=== PATIENT | female | born 1935 | race Caucasian/White ===

== ENCOUNTER 2016-11-02 22:57 | Observation (INO) | payer MEDICARE, OTHER ==
[~2016-11-02] VITALS: Ht 157.5 cm; Wt 72.0 kg
[~2016-11-02 22:57] MED LIST: ASPI81TA3 PO; DRON400T2 PO; HYDR-3671 PO; LOSA100T7 PO; METF850T PO; RIVA20TA PO; SOLI5TAB5 PO
[2016-11-02] MEDS ORDERED: ONDANSETRON 4 MG INJ IV STA (23:07)
[2016-11-02] MEDS ORDERED: morphine 4 MG/ML VIAL IV STA (23:07)
[2016-11-02 23:08] VITALS: Ht 157.5 cm; Wt 72.0 kg
[2016-11-02 23:50] VITALS: TEMP 98
[2016-11-03] VITALS (12 sets, daily range): BP systolic 129–187; BP diastolic 61–81; PULSE 58–84; RESP 14–20
[2016-11-03 00:16] LABS: ADD SCAN DIFF NO
[2016-11-03 00:20] LABS: BASOPHILS % 0.1 % (0.0-2.0); HEMATOCRIT 32.7 % (37.0-47.0); HEMOGLOBIN 10.8 g/dl (12.0-16.0); LYMPHOCYTES # 1.8 10^3/ul (0.8-2.9); LYMPHOCYTES % 22.6 % (15.0-51.0); MEAN CORPUSCULAR HEMOGLOBIN 27.1 pg (29.0-33.0); MEAN PLATELET VOLUME 11.4 fl (7.4-10.4); MONOCYTE # 0.6 10^3/ul (0.3-0.9); MONOCYTES % 6.8 % (0.0-11.0); NEUTROPHIL # 5.7 10^3/ul (1.6-7.5); NEUTROPHILS % 70.1 % (39.0-77.0); PLATELET COUNT 177 10^3/UL (140-415); RED BLOOD COUNT 3.99 10^6/ul (4.20-5.40); RED CELL DISTRIBUTION WIDTH 13.6 % (11.5-14.5); WHITE BLOOD COUNT 8.1 10^3/ul (4.8-10.8)
[2016-11-03 00:29] LABS: CHLORIDE 106 mmol/L (97-110); POTASSIUM 4.1 mmol/L (3.5-5.1); SODIUM 140 mmol/L (135-144)
[2016-11-03 00:31] LABS: BILIRUBIN,INDIRECT 0.1 mg/dl (0-1.1); BILIRUBIN,TOTAL 0.1 mg/dl (0.2-1.3); CREATININE 0.86 mg/dl (0.44-1.00)
[2016-11-03 00:32] LABS: ALANINE AMINOTRANSFERASE 30 IU/L (13-69); ALBUMIN/GLOBULIN RATIO 1.11; ALKALINE PHOSPHATASE 82 IU/L (42-121); ANION GAP 12 (8-16); ASPARTATE AMINO TRANSFERASE 23 IU/L (15-46); BLOOD UREA NITROGEN 19 mg/dl (7-20); CARBON DIOXIDE 26 mmol/L (21-31); GLUCOSE 132 mg/dl (70-220); TOTAL PROTEIN 7.6 g/dl (6.1-8.1)
[2016-11-03 00:33] LABS: CALCIUM 9.1 mg/dl (8.4-10.2)
[2016-11-03 00:38] LABS: INR 1.04; PROTIME 13.6 Sec (12.2-14.2); PT RATIO 1.1
[2016-11-03 00:41] LABS: B-TYPE NATRIURETIC PEPTIDE 748 PG/ML (0-450); PARTIAL THROMBOPLASTIN TIME 28.9 Sec (25.0-35.0)
--- NOTE | 2016-11-03 00:44 | RADRPT ---
PROCEDURE: XR Chest. CLINICAL INDICATION: Chest pain. TECHNIQUE: Single frontal view of the chest was obtained COMPARISON: Chest dated 09/28/2014. FINDINGS: Cardiomegaly and tortuous thoracic aorta. Mild pulmonary vascular congestion and patchy air space d isease. There is no pleural effusion or pneumothorax. IMPRESSION: Mild failure. RPTAT: [facility] Physician Saundra Date Time Electronically viewed and signed by Helen Perla Physician on 11/03/2016 00:44 RS/
[2016-11-03 00:45] LABS: TROPONIN-I < 0.012 ng/ml (0.00-0.12)
--- NOTE | 2016-11-03 00:57 | ERD ---
ER Documentation Chief Complaint Date/Time DATE: 11/03/16 TIME: 00:55 Chief Complaint bib ra c/o CP since yesterday, nonradiating, nonprovoked, 09/12 w/ ntg x2 HPI This is an 81-year-old female who brought in by rescue complaining of chest pain since yesterday which is nonradiating and non-provoked. Patient was given 2 rounds of nitroglycerin in the field along with aspirin therapy. Pain scale went down from 8 out of 10-2 out of 10 upon arrival to the ER. Patient complaining of mild headache. Nonfocal neurologically. No shortness of breath. No diaphoresis. Patient does have significant cardiac history per daughter at the bedside. ROS All systems reviewed and are negative except as per history of present illness. Medications Home Meds Active Scripts Aspirin (Aspirin) 81 Mg Chew, 81 MG PO DAILY for 30 Days Prov:HOMAR ESCOBEDO MD 09/30/14 Hydralazine Hcl* (Hydralazine Hcl*) 25 Mg Tab, 25 MG PO TID for 30 Days, TAB Prov:HOMAR ESCOBEDO MD 09/30/14 Reported Medications Solifenacin* (Vesicare*) 5 Mg Tablet, 5 MG PO DAILY, TAB 09/28/14 Rivaroxaban* (Xarelto*) 20 Mg Tablet, 20 MG PO DAILY, TAB 09/28/14 Dronedarone Hydrochloride* (Multaq*) 400 Mg Tablet, 400 MG PO BID, TAB 09/28/14 Losartan Potassium* (Losartan Potassium*) 100 Mg Tablet, 100 MG PO DAILY, TAB 09/28/14 Metformin Hcl* (Metformin Hcl*) 850 Mg Tablet, 850 MG PO BID, TAB 09/28/14 Allergies Allergies: Coded Allergies: No Known Allergy (Unverified , 09/28/14) PMhx/Soc History of Surgery: Yes (appendicitis, ) Anesthesia Reaction: No Hx Neurological Disorder: No Hx Respiratory Disorders: No Hx Cardiac Disorders: Yes (HTN) Hx Psychiatric Problems: No Hx Miscellaneous Medical Probl: Yes (back pain) Hx Alcohol Use: No Hx Substance Use: No Hx Tobacco Use: No Smoking Status: Never smoker Physical Exam Vitals Vital Signs Date Time Temp Pulse Resp B/P Pulse Ox O2 Delivery O2 Flow Rate FiO2 11/02/16 23:50 Nasal Cannula 2 11/02/16 23:50 98.0 60 20 179/67 98 Room Air 11/02/16 23:08 98.0 79 20 173/93 98 Physical Exam Const: [] Head: Atraumatic Eyes: Normal Conjunctiva ENT: Normal External Ears, Nose and Mouth. Neck: Full range of motion..~ No meningismus. Resp: Clear to auscultation bilaterally Cardio: Regular rate and rhythm, no murmurs Abd: Soft, non tender, non distended. Normal bowel sounds Skin: No petechiae or rashes Back: No midline or flank tenderness Ext: No cyanosis, or edema Neur: Awake and alert Psych: Normal Mood and Affect Result Diagram: 11/02/16232411/02/162324 Results 24 hrs Laboratory Tests Test 11/02/16 23:25 White Blood Count 8.110^3/ul Red Blood Count 3.9910^6/ul Hemoglobin 10.8g/dl Hematocrit 32.7% Mean Corpuscular Volume 82.0fl Mean Corpuscular Hemoglobin 27.1pg Mean Corpuscular Hemoglobin Concent 33.0g/dl Red Cell Distribution Width 13.6% Platelet Count 10917^3/UL Mean Platelet Volume 11.4fl Neutrophils % 70.1% Lymphocytes % 22.6% Monocytes % 6.8% Eosinophils % 0.0% Basophils % 0.1% Nucleated Red Blood Cells % 0.0/100WBC Neutrophils # 5.710^3/ul Lymphocytes # 1.810^3/ul Monocytes # 0.610^3/ul Eosinophils # 0.010^3/ul Basophils # 0.010^3/ul Nucleated Red Blood Cells # 0.010^3/ul Prothrombin Time 13.6Sec Prothrombin Time Ratio 1.1 INR International Normalized Ratio 1.04 Activated Partial Thromboplast Time 28.9Sec Sodium Level 140mmol/L Potassium Level 4.1mmol/L Chloride Level 106mmol/L Carbon Dioxide Level 26mmol/L Anion Gap 12 Blood Urea Nitrogen 19mg/dl Creatinine 0.86mg/dl Glucose Level 132mg/dl Calcium Level 9.1mg/dl Total Bilirubin 0.1mg/dl Direct Bilirubin 0.00mg/dl Indirect Bilirubin 0.1mg/dl Aspartate Amino Transf (AST/SGOT) 23IU/L Alanine Aminotransferase (ALT/SGPT) 30IU/L Alkaline Phosphatase 82IU/L Troponin I < 0.012ng/ml B-Type Natriuretic Peptide 748PG/ML Total Protein 7.6g/dl Albumin 4.0g/dl Globulin 3.60g/dl Albumin/Globulin Ratio 1.11 Current Medications Medications (Trade) Dose Ordered Sig/Jean-Claude Route PRN Reason Start Time Stop Time Status Last Admin Dose Admin Morphine Sulfate (morphine) 4 mg ONCE STAT IV 11/02/16 23:07 11/02/16 23:08 DC 11/02/16 23:33 Ondansetron HCl (Zofran Inj) 4 mg ONCE STAT IV 11/02/16 23:07 11/02/16 23:08 DC 11/02/16 23:33 Acetaminophen (Tylenol Tab) 650 mg ONCE ONCE PO 11/03/16 01:00 11/03/16 01:01 Procedures/MDM EKG: Rate/Rhythm: Normal Sinus Rhythm QRS, ST, T-waves: No changes consistent w/ acute ischemia Impression: No evidence of ischemia or arrhythmia Chest X-ray 1V Interpreted by me: Soft Tissue: No acute abnormalities Bones: No acute abnormalities Mediastinum/Cardiac Silhouette/Lungs: No acute abnormalities Patient's symptoms are concerning for cardiac cause will require inpatient workup and continuous monitoring. Further w/u for ischemia, arrhythmia, PE or dissection will be deferred to the inpatient team. Accepting Care Team: Current data and ongoing care discussed. Time: 12:55 am Primary Provider: Hospitalist Consulting: [XOXOXO] Outstanding Data: none Departure Diagnosis: Primary Impression: Chest pain Chest pain type: chest pain due to myocardial ischemia Ischemic chest pain type: unstable angina pectoris Qualified Code: I20.0 - Unstable angina pectoris Additional Impression: Acute chest pain Condition: Serious CLARKEDAREKALLYHOMARShayla Nov 03, 2016 00:56
[2016-11-03] MEDS ORDERED: ACETAMINOPHEN 325 MG TAB PO ONE (01:00)
[2016-11-03] MEDS ORDERED: NITROGLYCERIN (SL) 0.4 MG TAB SL PRN (03:00)
[2016-11-03] MEDS ORDERED: INFLUENZA VIRUS VACCINE 0.5 ML SYG IM* ONE (03:00)
[2016-11-03] MEDS ORDERED: ACETAMINOPHEN 325 MG TAB PO PRN (03:00)
[2016-11-03] MEDS: morphine 4 MG/ML VIAL IV PRN (03:28)
[2016-11-03] MEDS ORDERED: GLUCOSE GEL 15 GRAM TUBE BUCCAL PRN (04:00)
[2016-11-03] MEDS ORDERED: DEXTROSE 50% 50 ML SYRINGE IV PRN ×2 (04:00)
[2016-11-03] MEDS ORDERED: GLUCAGON 1 MG INJ IM PRN (04:00)
[2016-11-03] MEDS ORDERED: GLUCOSE GEL 15 GRAM TUBE PO PRN ×2 (04:00)
--- NOTE | 2016-11-03 05:28 | HP ---
DATE OF ADMISSION: 11/03/2016 TIME SEEN: 3 a.m. CHIEF COMPLAINT: Chest pain. HISTORY OF PRESENT ILLNESS: The patient is an 81-year-old female with a history of hypertension, di abetes, dyslipidemia, and atrial fibrillation who presented to the emergency department with a chief complaint of chest pain. The patient is Setswana speaking only and as such, information is gathere d from chart review, from the ER physician, and her through translator and interpreter. Her chest pain has been go ing on since yesterday. It is sharp, nonradiating, and reportedly was 8/10 in intensity. The pain to 3/10 pain after first nitroglycerin by EMS and further decreased to 2/10 after the second nitrogl ycerin, again given by EMS. When she presented to the ER, her blood pressure was 173/93 but initially it was 216/104. The patie nt was admitted here about a month ago for a headache and at that time, a CT of the head was negativ e for any acute findings. The patient's blood pressure was elevated at that time and based on chart review, it seems like she has had his uncontrolled hypertension. When the patient presented to the ER, she also started complaining of headache after she was given nitroglycerin by EMS. No other co mplaint other than that the initial chest pain and now headache. Laboratory value shows that her f irst troponin is negative. BNP is almost 750, hemoglobin almost 11, otherwise CBC and CMP are withi n normal limits. A chest x-ray shows mild pulmonary vascular congestion and patchy airspace disease . In the ER, she was given Tylenol, morphine, and Zofran. REVIEW OF SYSTEMS: Negative except as mentioned in HPI. PAST MEDICAL HISTORY: As per HPI. PAST SURGICAL HISTORY: Appendectomy and . SOCIAL HISTORY: No history of tobacco, alcohol or illicit drug use. ALLERGIES: NO KNOWN DRUG ALLERGIES. HOME MEDICATIONS: 1. Xarelto. 2. Multaq. 3. Hydralazine. 4. Losartan. 5. Aspirin. 6. Metformin. 7. VESIcare. PHYSICAL EXAMINATION: VITAL SIGNS: Blood pressure 170/61, heart rate 66, respiratory rate 14, temperature 98, oxygen satu ration 99% on room air. GENERAL: No acute distress. Was slightly sleepy, but arousable, and she actually looks comfortable . HEENT: No obvious head deformity. Pupils are reactive to light. CARDIOVASCULAR: Regular rate and rhythm with no extra sounds. LUNGS: Minimally decreased breath sounds at the bases without wheezes or rhonchi. ABDOMEN: Soft, nontender, nondistended. Positive bowel sounds. EXTREMITIES: No edema. LABORATORY: Pertinent positives as mentioned in the HPI. IMAGING: Chest x-ray shows mild pulmonary vascular congestion and patchy airspace disease. IMPRESSION 1. Chest pain, need to rule out acute coronary syndrome. 2. Hypertensive urgency (blood pressure was 216/104 per EMS). 3. History of diabetes. 4. History of atrial fibrillation, currently in sinus and rate controlled. 5. Headache, likely a combination of elevated blood pressure and nitroglycerin. 6. History of dyslipidemia. PLAN: Continue telemetry monitoring. We will rule out acute coronary syndrome and as such, will se nd additional troponins. The patient recently had a 2D echo about 6 weeks ago which only showed mil d left ventricular hypertrophy and mild enlargement of the left atrium, otherwise she had a preserve d ejection fraction of 60% without significant valvular stenosis or regurgitation. The patient foll ows up with her residency coordinator, Dr. Burns, for outpatient and was recently seen here by Dr. Yovanny herbert o will actually notify about her admission. Her initial EKG was no ST-T wave abnormalities. She wi ll be continued with her home medication including her hydralazine, losartan, Xarelto, and aspirin, but will hold her metformin. Will adjust her antihypertensive for better blood pressure control. H er heart rate has been as low as 60 and as such will not add a beta yue at this time. Her recen t fasting lipid panel was within acceptable range and A1c was 6.2 and a TSH was within normal limits . Will provide pain medication for her headache and will provide nitroglycerin and morphine as need ed for chest pain. Further workup and management per clinical course. Dictated By: HOMAR DURBIN/AMBER Conf#: [id number] DID#: [id number]
[2016-11-03] MEDS: hydrALAzine 20 MG INJ IV PRN (06:52)
[2016-11-03 06:58] LABS: ADD SCAN DIFF NO
[2016-11-03 07:04] LABS: HEMATOCRIT 33.2 % (37.0-47.0); HEMOGLOBIN 10.6 g/dl (12.0-16.0); LYMPHOCYTES # 2.1 10^3/ul (0.8-2.9); LYMPHOCYTES % 31.8 % (15.0-51.0); MEAN CORPUSCULAR HEMOGLOBIN 26.1 pg (29.0-33.0); MEAN CORPUSCULAR HGB CONC 31.9 g/dl (32.0-37.0); MEAN CORPUSCULAR VOLUME 81.8 fl (82.0-101.0); MEAN PLATELET VOLUME 10.8 fl (7.4-10.4); MONOCYTE # 0.6 10^3/ul (0.3-0.9); MONOCYTES % 8.9 % (0.0-11.0); NEUTROPHILS % 59.2 % (39.0-77.0); PLATELET COUNT 161 10^3/UL (140-415); RED BLOOD COUNT 4.06 10^6/ul (4.20-5.40); RED CELL DISTRIBUTION WIDTH 13.9 % (11.5-14.5); WHITE BLOOD COUNT 6.7 10^3/ul (4.8-10.8)
[2016-11-03 07:19] LABS: CHLORIDE 107 mmol/L (97-110); POTASSIUM 4.2 mmol/L (3.5-5.1); SODIUM 139 mmol/L (135-144)
[2016-11-03 07:21] LABS: CHOLESTEROL 171 mg/dl (100-200)
[2016-11-03 07:22] LABS: ANION GAP 10 (8-16); BLOOD UREA NITROGEN 18 mg/dl (7-20); CARBON DIOXIDE 26 mmol/L (21-31); CREATININE 0.83 mg/dl (0.44-1.00); GLUCOSE 122 mg/dl (70-220); PHOSPHORUS 4.2 mg/dl (2.5-4.9); TRIGLYCERIDES 113 mg/dl (0-149)
[2016-11-03 07:23] LABS: CALCIUM 8.7 mg/dl (8.4-10.2); CHOL/HDL RATIO 4.7 RATIO; HDL CHOLESTEROL 36 mg/dl (33-92); MAGNESIUM 1.7 mg/dl (1.7-2.5)
[2016-11-03 07:40] LABS: TROPONIN-I < 0.012 ng/ml (0.00-0.12)
[2016-11-03] MEDS: ASPIRIN 81 MG TAB PO SCH (08:10)
[2016-11-03] MEDS: SOLIFENACIN 5 MG TAB PO SCH (08:11)
[2016-11-03] MEDS: RIVAROXABAN 20 MG TABLET PO SCH (08:11)
[2016-11-03] MEDS: INSULIN ASPART [NOVOLOG] 3 ML PEN SC SCH ×4 (08:16→20:26)
[2016-11-03] MEDS: INSULIN GLARGINE [LANtus] 3 ML PEN SC SCH (08:17)
[2016-11-03] MEDS: ONDANSETRON 4 MG INJ IV PRN (08:24)
[2016-11-03] MEDS ORDERED: hydrALAzine 20 MG INJ IV ONE (08:30)
[2016-11-03] MEDS ORDERED: LOSARTAN 50 MG TAB PO SCH (09:00)
[2016-11-03] MEDS ORDERED: IBUPROFEN 400 MG TAB PO PRN (12:00)
[2016-11-03] MEDS: HYDROCODONE/APAP (5/325) TAB PO PRN ×2 (12:45→18:07)
--- NOTE | 2016-11-03 16:06 | PDOCDIS ---
Discharge Instructions CONDITION Patient Condition: Good HOME CARE INSTRUCTIONS: Special Diet: 1800 TERESA LOW FAT/ CHOLESTEROL ACTIVITY: Activity Restrictions: No Restrictions FOLLOW UP/APPOINTMENTS Appointments FOllow up with PCP as out-pt Follow up with Cardiology as out-pt BENJI GRAY MD Nov 03, 2016 16:06
[2016-11-03] MEDS ORDERED: HYDR-3671 PO (16:09)
[2016-11-03] MEDS ORDERED: HYDR-3498 PO (16:09)
[2016-11-03] MEDS ORDERED: SITA50TA2 PO (16:24)
[2016-11-03] MEDS ORDERED: LOSA50TA6 PO (18:07)
[2016-11-03] MEDS ORDERED: HYDR-3672 PO (18:07)
[2016-11-03] MEDS ORDERED: ATEN-51 PO (18:07)
--- NOTE | 2016-11-03 18:14 | CONS ---
Date/Time of Note Date/Time of Note DATE: 11/03/16 TIME: 18:07 Assessment/Plan Assessment/Plan Additional Assessment/Plan Hypertension urgency, improved Paroxysmal atrial fibrillation, currently sinus Preserved ejection fraction Diabetes Hypertension -Extensive discussion was had with the patient and daughter at bedside. Patient on very similar home medication antihypertensive regimen in-house with significant improvement in blood pressure. Furthermore, patient has not been receiving clonidine or atenolol in house, which are patient's home medications, and blood pressure continues to improve. I am concerned about an element of noncompliance with medications. Furthermore in discussion, patient does admit to poor diet and sodium restriction. Could also be an element of anxiety as well. I would adjust Cozaar to 50 mg p.o. twice daily, hydralazine to 50 mg p.o. twice daily, continue atenolol. Given her age, systolic blood pressure goal in the 150s is appropriate. Serial cardiac enzymes have remained negative , ECG without any significant ischemic abnormalities. Consultation Date/Type/Reason Admit Date/Time Nov 03, 2016 at 00:57 Type of Consultation: cv Reason for Consultation Hypertension management Hx of Present Illness This is an 81-year-old female with past medical history of hypertension, paroxysmal atrial fibrillation, anxiety who presents with uncontrolled hypertension. Patient has been having issues with blood pressure control worsening over the past few weeks. She has a long history of uncontrolled hypertension. She recently had her atenolol dose increase as well as addition of hydralazine. She also has been taking clonidine intermittently. Patient with complaints of intermittent headaches, chest pain at times and shortness of breath. Symptoms are not related to activity but more so related to elevated blood pressure. She denies any fevers or chills, dizziness or lightheadedness, abdominal pain, nausea. Since her admission, her blood pressure trend has improved as well as her headache. She currently denies any chest pain or shortness of breath. 12 point review of systems was performed with all pertinent positives and negatives mentioned above and all else is negative Past Medical History Hypertension Paroxysmal atrial fibrillation Dyslipidemia Diabetes Family History Significant Family History: no pertinent family hx Social History Smoking Status: Never smoker Other Social History Lives at home Exam/Review of Systems Vital Signs Vitals Vital Signs Date Time Temp Pulse Resp B/P Pulse Ox O2 Delivery O2 Flow Rate FiO2 11/03/16 16:17 62 11/03/16 16:08 98.0 16 156/70 94 11/03/16 02:17 Room Air 11/02/16 23:50 2 Intake and Output 11/02/16 11/02/16 11/03/16 15:00 23:00 07:00 Intake Total 0 ml Balance 0 ml Exam No apparent distress Constitutional: alert, obese, oriented Head: normocephalic Neck: supple Respiratory: clear to auscultation, normal air movement Cardiovascular: other (S1-S2 heard), regular rate and rhythm Gastrointestinal: bowel sounds, non-tender, other (No guarding), soft Extremities: edema (Trace), other (No cyanosis) Results Result Diagram: 11/03/16 0640 11/03/16 0640 Results 24 hrs Laboratory Tests Test 11/02/16 23:25 11/03/16 01:56 11/03/16 06:40 11/03/16 07:50 White Blood Count 8.1 6.7 Red Blood Count 3.99 L 4.06 L Hemoglobin 10.8 L 10.6 L Hematocrit 32.7 L 33.2 L Mean Corpuscular Volume 82.0 81.8 L Mean Corpuscular Hemoglobin 27.1 L 26.1 L Mean Corpuscular Hemoglobin Concent 33.0 31.9 L Red Cell Distribution Width 13.6 13.9 Platelet Count 177 161 Mean Platelet Volume 11.4 H 10.8 H Neutrophils % 70.1 59.2 Lymphocytes % 22.6 31.8 Monocytes % 6.8 8.9 Eosinophils % 0.0 0.0 Basophils % 0.1 0.0 Nucleated Red Blood Cells % 0.0 0.0 Neutrophils # 5.7 4.0 Lymphocytes # 1.8 2.1 Monocytes # 0.6 0.6 Eosinophils # 0.0 0.0 Basophils # 0.0 0.0 Nucleated Red Blood Cells # 0.0 0.0 Prothrombin Time 13.6 Prothrombin Time Ratio 1.1 INR International Normalized Ratio 1.04 Activated Partial Thromboplast Time 28.9 Sodium Level 140 139 Potassium Level 4.1 4.2 Chloride Level 106 107 Carbon Dioxide Level 26 26 Anion Gap 12 10 Blood Urea Nitrogen 19 18 Creatinine 0.86 0.83 Glucose Level 132 122 Calcium Level 9.1 8.7 Total Bilirubin 0.1 L Direct Bilirubin 0.00 Indirect Bilirubin 0.1 Aspartate Amino Transf (AST/SGOT) 23 Alanine Aminotransferase (ALT/SGPT) 30 Alkaline Phosphatase 82 Troponin I < 0.012 < 0.012 B-Type Natriuretic Peptide 748 H Total Protein 7.6 Albumin 4.0 Globulin 3.60 H Albumin/Globulin Ratio 1.11 Bedside Glucose 115 142 Hemoglobin A1c 6.2 H Phosphorus Level 4.2 Magnesium Level 1.7 Triglycerides Level 113 Cholesterol Level 171 LDL Cholesterol, Calculated 112 HDL Cholesterol 36 Cholesterol/HDL Ratio 4.7 Thyroid Stimulating Hormone (TSH) 5.330 H Test 11/03/16 11:40 11/03/16 12:10 11/03/16 17:04 Troponin I < 0.012 Bedside Glucose 204 170 Medications Medications Current Medications Aspirin (Aspirin) 81 mg DAILY PO Last administered on 11/03/16 08:10; Admin Dose 81 MG; Start 11/03/16 at 09:00 Hydralazine HCl (Apresoline) 25 mg TID PO Last administered on 11/03/16 12:22; Admin Dose 25 MG; Start 11/03/16 at 09:00 Losartan Potassium (Cozaar) 100 mg DAILY PO Last administered on 11/03/16 08:11 ; Admin Dose 100 MG; Start 11/03/16 at 09:00 Rivaroxaban (Xarelto) 20 mg DAILY PO Last administered on 11/03/16 08:11; Admin Dose 20 MG; Start 11/03/16 at 09:00 Solifenacin (Vesicare) 5 mg DAILY PO Last administered on 11/03/16 08:11; Admin Dose 5 MG; Start 11/03/16 at 09:00 Hydralazine HCl (Apresoline) 10 mg Q4H PRN IV ELEVATED BLOOD PRESSURE Last administered on 11/03/16 06:52; Admin Dose 10 MG; Start 11/03/16 at 03:00 Acetaminophen (Tylenol Tab) 650 mg Q6H PRN PO PAIN AND OR ELEVATED TEMP Last administered on 11/03/16 06:51; Admin Dose 650 MG; Start 11/03/16 at 03:00 Morphine Sulfate (morphine) 4 mg Q6 PRN IV PAIN LEVEL 7-10 Last administered on 11/03/16 03:28; Admin Dose 4 MG; Start 11/03/16 at 03:00 Nitroglycerin (Nitroglycerin (Sl Tab) 0.4 Mg) 1 tab Q5M PRN SL ANGINA; Start at 03:00 Insulin Glargine (Lantus) 10 unit DAILY@08 SC Last administered on 11/03/16 08: 17; Admin Dose 10 UNIT; Start 11/03/16 at 08:00 Diagnostic Test (Pha) (Accu-Chek) 1 ea 02 XX ; Start 11/04/16 at 02:00 Miscellaneous Information 1 ea NOTE XX ; Start 11/03/16 at 04:00 Glucose (Glutose) 15 gm Q15M PRN PO DECREASED GLUCOSE; Start 11/03/16 at 04:00 Glucose (Glutose) 22.5 gm Q15M PRN PO DECREASED GLUCOSE; Start 11/03/16 at 04:00 Dextrose (D50w Syringe) 25 ml Q15M PRN IV DECREASED GLUCOSE; Start 11/03/16 at 04:00 Dextrose (D50w Syringe) 50 ml Q15M PRN IV DECREASED GLUCOSE; Start 11/03/16 at 04:00 Glucagon (Glucagen) 1 mg Q15M PRN IM DECREASED GLUCOSE; Start 11/03/16 at 04:00 Glucose (Glutose) 15 gm Q15M PRN BUCCAL DECREASED GLUCOSE; Start 11/03/16 at 04: 00 Ondansetron HCl (Zofran Inj) 4 mg Q6H PRN IV NAUSEA AND/OR VOMITING Last administered on 11/03/16 08:24; Admin Dose 4 MG; Start 11/03/16 at 08:30 Ibuprofen (Motrin) 400 mg Q6 PRN PO PAIN Last administered on 11/03/16 12:23; Admin Dose 400 MG; Start 11/03/16 at 12:00 Acetaminophen/ Hydrocodone Bitart ([place] (5/325)) 1 tab Q4H PRN PO PAIN Last administered on 11/03/16 12:45; Admin Dose 1 TAB; Start 11/03/16 at 12:00 Procedures Procedures ECG demonstrates sinus rhythm at 73 bpm, normal QRS duration, no significant ischemic STT wave abnormalities Vijay Hairston DO Nov 03, 2016 18:14
[2016-11-03] MEDS: CHLORTHALIDONE 25 MG TAB PO SCH (20:35)
[2016-11-03] MEDS: LOSARTAN 50 MG TAB PO SCH (20:37)
[2016-11-04] VITALS (10 sets, daily range): BP systolic 148–176; BP diastolic 69–86; PULSE 56–73; RESP 16–20
[2016-11-04] MEDS: HYDROCODONE/APAP (5/325) TAB PO PRN ×2 (00:50→10:24)
[2016-11-04] MEDS: hydrALAzine 20 MG INJ IV PRN (00:50)
[2016-11-04] MEDS ORDERED: ACCU-CHEK XX SCH ×2 (02:00)
[2016-11-04] MEDS: ONDANSETRON 4 MG INJ IV PRN (04:23)
[2016-11-04] MEDS: morphine 4 MG/ML VIAL IV PRN (04:23)
--- NOTE | 2016-11-04 06:48 | DS ---
DATE OF ADMISSION: 11/03/2016 DATE OF DISCHARGE: 11/03/2016 CONSULTANTS: Assistant [employer] DIAGNOSES: 1. Normal atypical chest pain, acute coronary syndrome was ruled out with negative troponin. 2. Hypertensive urgency, resolved. The patient's blood pressure is well controlled on Losartan, Mu ltaq, and hydralazine. 3. Atrial fibrillation. Continue Multaq and Eliquis. 4. Headache, likely secondary to nitroglycerin versus blood pressure. The patient was discharged o n Kendall and ibuprofen. 5. Dyslipidemia, well controlled. 6. Questionable hypothyroidism. Follow up with primary care physician as outpatient. The patient' s TSH is 5.33, on previous admission the patient's TSH was 2.280. MEDICATIONS: 1. Kendall. 2. Aspirin. 3. Multaq. 4. Hydralazine 5. Losartan. 6. Metformin. 7. Xarelto. 8. ____. ALLERGIES: NO KNOWN DRUG ALLERGIES. LABORATORIES: Sodium 139, potassium 4.2, chloride 107, bicarbonate 23, BUN 10, creatinine 0.83, glu cose 122. Hemoglobin was 6.2, ____. Troponin negative x3. Triglyceride 113, total cholesterol 171 , LDL 112, HDL 36. TSH 5.330. WBC 6.7, hemoglobin 10.6, hematocrit 33.2, platelets 161. DISPOSITION: Home. FOLLOWUP: 1. Follow up with primary care physician as outpatient. 2. Follow with cardiology as outpatient. DIET: Low carb cardiac diet. ACTIVITY: As tolerated. INSTRUCTIONS: The patient is instructed to follow up with her primary care physician as outpatient for reevaluation of the thyroid panel and lipid panel. The reason that the patient should be follow ed as for her thyroid panel is that this thyroid panel may be abnormal during the course of the hosp italization secondary to acute setting, and the patient needs to be reevaluated as outpatient. HOSPITAL COURSE: This is an 81-year-old female with past medical history of atrial fibrillation, hy pertension, dyslipidemia, prediabetic, on chronic anticoagulation, morbid obesity, complaining of vega ving chest pain x2 days with headache. The patient stated that chest pain started on 11/02/2016. I t was sharp, nonradiating, 8/10 in intensity. After obtaining nitroglycerin via EMS, the pain decre ased to 2/10. The patient was seen and evaluated in the course of the emergency room, blood pressur e was 150/93 which was initially 216/104. CT of the head was negative for any acute finding. Blood pressure was found to be elevated and was treated with Losartan, nitroglycerin, and hydralazine IV. She was admitted to telemetry floor. Recently the patient, on 09/22/2016 had a 2-D echocardiogram which demonstrated normal left ventricular systolic function, normal left ventricular cavity size, mild concentric left hypertrophy, ejection fraction visually 60%. Normal right ventricular size, no rmal right ventricular systolic function, mild enlargement of left atrium, the right atrium is corrine l in size. No significant valvular stenosis or regurgitation was seen. The patient was placed on m orphine, Kendall, and ibuprofen for her headache. For her blood pressure, the patient was continued o n losartan and hydralazine. For diabetes mellitus, the patient has been placed on Lantus. At home, the patient is on metformin. Will continue this regimen. Her blood pressure has been better contr olled with 137/73, 129/62, and 156/70. The rest of the vitals have been stable. At this time, sandeep ent is medically stable to be discharged home with a close followup with her primary care physician and cardiology. DIET: Low carbohydrates cardiac diet. In case of having any headache, dizziness, lightheadedness, chest pain, the patient needs to return to med/surg immediately. Dictated By: BENJI LUGO/NTS Conf#: [id number] DID#: [id number]
[2016-11-04 07:20] LABS: ADD SCAN DIFF NO
[2016-11-04 07:25] LABS: BASOPHILS % 0.1 % (0.0-2.0); HEMATOCRIT 33.8 % (37.0-47.0); LYMPHOCYTES # 1.2 10^3/ul (0.8-2.9); LYMPHOCYTES % 11.8 % (15.0-51.0); MEAN CORPUSCULAR HEMOGLOBIN 26.8 pg (29.0-33.0); MEAN CORPUSCULAR HGB CONC 32.5 g/dl (32.0-37.0); MEAN CORPUSCULAR VOLUME 82.4 fl (82.0-101.0); MONOCYTE # 0.4 10^3/ul (0.3-0.9); MONOCYTES % 4.2 % (0.0-11.0); NEUTROPHIL # 8.3 10^3/ul (1.6-7.5); NEUTROPHILS % 83.5 % (39.0-77.0); PLATELET COUNT 195 10^3/UL (140-415); RED CELL DISTRIBUTION WIDTH 13.9 % (11.5-14.5); WHITE BLOOD COUNT 9.9 10^3/ul (4.8-10.8)
[2016-11-04 07:45] LABS: CREATININE 0.72 mg/dl (0.44-1.00)
[2016-11-04 07:46] LABS: CALCIUM 9.2 mg/dl (8.4-10.2)
[2016-11-04] MEDS: RIVAROXABAN 20 MG TABLET PO SCH (08:18)
[2016-11-04] MEDS: CHLORTHALIDONE 25 MG TAB PO SCH (08:18)
[2016-11-04] MEDS: SOLIFENACIN 5 MG TAB PO SCH (08:18)
[2016-11-04] MEDS: ASPIRIN 81 MG TAB PO SCH (08:18)
[2016-11-04] MEDS: LOSARTAN 50 MG TAB PO SCH (08:18)
[2016-11-04] MEDS: INSULIN GLARGINE [LANtus] 3 ML PEN SC SCH (08:23)
[2016-11-04] MEDS: INSULIN ASPART [NOVOLOG] 3 ML PEN SC SCH ×2 (08:26→11:27)
[2016-11-04] MEDS ORDERED: AMLODIPINE 5 MG TAB PO SCH (09:00)
--- NOTE | 2016-11-04 12:39 | CONS ---
Date/Time of Note Date/Time of Note DATE: 11/04/16 TIME: 12:35 Assessment/Plan Assessment/Plan Additional Assessment/Plan Hypertension urgency, improved Paroxysmal atrial fibrillation, currently sinus Preserved ejection fraction Diabetes Hypertension Headache -BP elevated yesterday prior to dc. Improved this am and was SBP 150's when I was in the room. C/o OSWALD, even with SBP in 140's this am, pt still c/o of OSWALD. Would cont Current anti-htn med regimen, if BP still not controlled, would change clonidine to standing dose 0.1mg bid, possible element of clonidine withdrawal contributing to sx. Will order CT head. Consultation Date/Type/Reason Admit Date/Time Nov 03, 2016 at 00:57 Initial Consult Date Type of Consultation: cv 24 HR Interval Summary Free Text/Dictation c/o OSWALD. denies sob, cp. Did not sleep well last night Exam/Review of Systems Vital Signs Vitals Vital Signs Date Time Temp Pulse Resp B/P Pulse Ox O2 Delivery O2 Flow Rate FiO2 11/04/16 12:16 98.4 56 18 166/73 94 11/03/16 02:17 Room Air 11/02/16 23:50 2 Intake and Output 11/03/16 11/03/16 11/04/16 15:00 23:00 07:00 Intake Total 600 ml 500 ml Output Total 680 ml Balance 600 ml -180 ml Exam nad Constitutional: alert, obese, oriented Head: normocephalic Respiratory: other (course bs, no wheeze) Cardiovascular: other (s1s2), regular rate and rhythm Gastrointestinal: bowel sounds, non-tender, other (no guarding), soft Extremities: edema (trace), other (no cyanosis) Results Result Diagram: 11/04/16 0645 11/04/16 0645 Results 24 hrs Laboratory Tests Test 11/03/16 17:04 11/03/16 20:24 11/04/16 06:45 11/04/16 07:45 Bedside Glucose 170 173 163 White Blood Count 9.9 # Red Blood Count 4.10 L Hemoglobin 11.0 L Hematocrit 33.8 L Mean Corpuscular Volume 82.4 Mean Corpuscular Hemoglobin 26.8 L Mean Corpuscular Hemoglobin Concent 32.5 Red Cell Distribution Width 13.9 Platelet Count 195 # Mean Platelet Volume 11.0 H Neutrophils % 83.5 H Lymphocytes % 11.8 L Monocytes % 4.2 Eosinophils % 0.0 Basophils % 0.1 Nucleated Red Blood Cells % 0.0 Neutrophils # 8.3 H Lymphocytes # 1.2 Monocytes # 0.4 Eosinophils # 0.0 Basophils # 0.0 Nucleated Red Blood Cells # 0.0 Sodium Level 140 Potassium Level 4.0 Chloride Level 102 Carbon Dioxide Level 26 Anion Gap 16 Blood Urea Nitrogen 18 Creatinine 0.72 Glucose Level 171 Calcium Level 9.2 Magnesium Level 1.7 Test 11/04/16 11:24 Bedside Glucose 138 Medications Medications Current Medications Aspirin (Aspirin) 81 mg DAILY PO Last administered on 11/04/16 08:18; Admin Dose 81 MG; Start 11/03/16 at 09:00 Rivaroxaban (Xarelto) 20 mg DAILY PO Last administered on 11/04/16 08:18; Admin Dose 20 MG; Start 11/03/16 at 09:00 Solifenacin (Vesicare) 5 mg DAILY PO Last administered on 11/04/16 08:18; Admin Dose 5 MG; Start 11/03/16 at 09:00 Hydralazine HCl (Apresoline) 10 mg Q4H PRN IV ELEVATED BLOOD PRESSURE Last administered on 11/04/16 00:50; Admin Dose 10 MG; Start 11/03/16 at 03:00 Acetaminophen (Tylenol Tab) 650 mg Q6H PRN PO PAIN AND OR ELEVATED TEMP Last administered on 11/03/16 06:51; Admin Dose 650 MG; Start 11/03/16 at 03:00 Morphine Sulfate (morphine) 4 mg Q6 PRN IV PAIN LEVEL 7-10 Last administered on 11/04/16 04:23; Admin Dose 4 MG; Start 11/03/16 at 03:00 Nitroglycerin (Nitroglycerin (Sl Tab) 0.4 Mg) 1 tab Q5M PRN SL ANGINA; Start at 03:00 Insulin Glargine (Lantus) 10 unit DAILY@08 SC Last administered on 11/04/16 08: 23; Admin Dose 10 UNIT; Start 11/03/16 at 08:00 Diagnostic Test (Pha) (Accu-Chek) 1 ea 02 XX ; Start 11/04/16 at 02:00 Miscellaneous Information 1 ea NOTE XX ; Start 11/03/16 at 04:00 Glucose (Glutose) 15 gm Q15M PRN PO DECREASED GLUCOSE; Start 11/03/16 at 04:00 Glucose (Glutose) 22.5 gm Q15M PRN PO DECREASED GLUCOSE; Start 11/03/16 at 04:00 Dextrose (D50w Syringe) 25 ml Q15M PRN IV DECREASED GLUCOSE; Start 11/03/16 at 04:00 Dextrose (D50w Syringe) 50 ml Q15M PRN IV DECREASED GLUCOSE; Start 11/03/16 at 04:00 Glucagon (Glucagen) 1 mg Q15M PRN IM DECREASED GLUCOSE; Start 11/03/16 at 04:00 Glucose (Glutose) 15 gm Q15M PRN BUCCAL DECREASED GLUCOSE; Start 11/03/16 at 04: 00 Ondansetron HCl (Zofran Inj) 4 mg Q6H PRN IV NAUSEA AND/OR VOMITING Last administered on 11/04/16 04:23; Admin Dose 4 MG; Start 11/03/16 at 08:30 Ibuprofen (Motrin) 400 mg Q6 PRN PO PAIN Last administered on 11/03/16 12:23; Admin Dose 400 MG; Start 11/03/16 at 12:00 Acetaminophen/ Hydrocodone Bitart ([place] (5/325)) 1 tab Q4H PRN PO PAIN Last administered on 11/04/16 10:24; Admin Dose 1 TAB; Start 11/03/16 at 12:00 Losartan Potassium (Cozaar) 50 mg BID PO Last administered on 11/04/16 08:18; Admin Dose 50 MG; Start 11/03/16 at 21:00 Chlorthalidone (Hygroton) 12.5 mg DAILY PO Last administered on 11/04/16 08:18 ; Admin Dose 12.5 MG; Start 11/03/16 at 18:30 Amlodipine Besylate (Norvasc) 5 mg DAILY PO Last administered on 11/04/16 08:18 ; Admin Dose 5 MG; Start 11/04/16 at 09:00 Clonidine (Catapres) 0.1 mg BID PRN PO ELEVATED BLOOD PRESSURE Last administered on 11/04/16 04:39; Admin Dose 0.1 MG; Start 11/04/16 at 05:00 Vijay Hairston DO Nov 04, 2016 12:39
[2016-11-04] MEDS ORDERED: MAGNESIUM SULFATE 2 GM/50 ML 50 ML IVPB ONE (13:00)
--- NOTE | 2016-11-04 15:14 | RADRPT ---
PROCEDURE: CT brain without contrast CLINICAL INDICATION: Headache, hypertensive urgency, on anticoagulation TECHNIQUE: CT of the brain without contrast performed on a multidetector CT scanner, with multiplan ar reformats. One or more of the following dose reduction techniques were used: Automated exposure control, adjustment in mA and / or kV according to patient size, use of iterative reconstructive [place] hnique. CTDIvol = 44 mGy; DLP = 720 mGy-cm. COMPARISON: 09/28/2014 FINDINGS: No acute intracranial hemorrhage is identified. No extra-axial fluid collection is seen. There is no mass effect. No midline shift is identified. Ventricles and sulci are mildly enlarged compatible with volume loss. There are mild areas of hypodensity in the periventricular - deep white matter which are nonspecific but suggestive of chronic small vessel ischemic changes. Castillo-white differentiation is preserved. Atherosclerotic calcifications of the intracranial internal carotid arteries are noted. Osseous structures are unremarkable. Mastoid air cells and imaged paranasal sinuses grossly clear. IMPRESSION: 1. No evidence of acute intracranial pathology. 2. Mild volume loss, with mild chronic small vessel ischemic changes. RPTAT: VV .Ned Miller MD, MD Date Time Electronically viewed and signed by .Ned Miller MD, MD on 11/04/2016 15:14 .O/
--- NOTE | 2016-11-04 16:46 | PN ---
Date/Time of Note Date/Time of Note DATE: 11/04/16 TIME: 16:43 Assessment/Plan VTE Prophylaxis VTE Prophylaxis Intervention: SCD's Lines/Catheters IV [facility] Urinary Cath still in place: No Assessment/Plan Chief Complaint/Hosp Course DIAGNOSES: 1. Normal atypical chest pain, acute coronary syndrome was ruled out with negative troponin. Continue medical management 2. Hypertensive urgency, resolved. The patient's blood pressure is well controlled on Losartan, Multaq, and hydralazine. Norvasc has been added by couturiere 3. Atrial fibrillation. Continue Multaq and Eliquis. 4. Headache, likely secondary to nitroglycerin versus blood pressure. CT of the head does not show any acute finding 5. Dyslipidemia, well controlled. 6. Questionable hypothyroidism. Follow up with primary care physician as outpatient. The patient's TSH is 5.33, on previous admission the patient's TSH was 2.280. Patient is medically stable to be discharged home with a close follow-up with her primary care physician as outpatient Patient also has been advised in case of having headache to follow-up with neurology as outpatient Problems: Subjective 24 Hr Interval Summary Free Text/Dictation Patient denies of any chest pain or shortness of breath Headache has been improving significantly Tolerating oral intake Exam/Review of Systems Vital Signs Vitals Vital Signs Date Time Temp Pulse Resp B/P Pulse Ox O2 Delivery O2 Flow Rate FiO2 11/04/16 16:00 57 11/04/16 15:54 98.6 18 156/69 94 11/03/16 02:17 Room Air 11/02/16 23:50 2 Intake and Output 11/03/16 11/03/16 11/04/16 15:00 23:00 07:00 Intake Total 600 ml 500 ml Output Total 680 ml Balance 600 ml -180 ml Exam General: The patient is moderately overweight, Not in acute distress. HEENT: Atraumatic, normocephalic. The pupils are equal and round . Neck: Supple with full range of motion. Chest: Normal expansion of the thorax during inspiration Lungs: Clear to auscultation bilaterally Heart: Normal S1-S2, Regular rhythm and rate. Abdomen: Soft , nontender, nondistended , bowel sounds are present. Extremities: Normal to inspection, no edema no cyanosis Neurologic: Normal mental status,The patient is awake, alert and oriented . Results Result Diagram: 11/04/16 0645 11/04/16 0645 Results 24 hrs Laboratory Tests Test 11/03/16 17:04 11/03/16 20:24 11/04/16 06:45 11/04/16 07:45 Bedside Glucose 170 173 163 White Blood Count 9.9 # Red Blood Count 4.10 L Hemoglobin 11.0 L Hematocrit 33.8 L Mean Corpuscular Volume 82.4 Mean Corpuscular Hemoglobin 26.8 L Mean Corpuscular Hemoglobin Concent 32.5 Red Cell Distribution Width 13.9 Platelet Count 195 # Mean Platelet Volume 11.0 H Neutrophils % 83.5 H Lymphocytes % 11.8 L Monocytes % 4.2 Eosinophils % 0.0 Basophils % 0.1 Nucleated Red Blood Cells % 0.0 Neutrophils # 8.3 H Lymphocytes # 1.2 Monocytes # 0.4 Eosinophils # 0.0 Basophils # 0.0 Nucleated Red Blood Cells # 0.0 Sodium Level 140 Potassium Level 4.0 Chloride Level 102 Carbon Dioxide Level 26 Anion Gap 16 Blood Urea Nitrogen 18 Creatinine 0.72 Glucose Level 171 Calcium Level 9.2 Magnesium Level 1.7 Test 11/04/16 11:24 Bedside Glucose 138 Medications Medications Current Medications Aspirin (Aspirin) 81 mg DAILY PO Last administered on 11/04/16 08:18; Admin Dose 81 MG; Start 11/03/16 at 09:00 Rivaroxaban (Xarelto) 20 mg DAILY PO Last administered on 11/04/16 08:18; Admin Dose 20 MG; Start 11/03/16 at 09:00 Solifenacin (Vesicare) 5 mg DAILY PO Last administered on 11/04/16 08:18; Admin Dose 5 MG; Start 11/03/16 at 09:00 Hydralazine HCl (Apresoline) 10 mg Q4H PRN IV ELEVATED BLOOD PRESSURE Last administered on 11/04/16 00:50; Admin Dose 10 MG; Start 11/03/16 at 03:00 Acetaminophen (Tylenol Tab) 650 mg Q6H PRN PO PAIN AND OR ELEVATED TEMP Last administered on 11/03/16 06:51; Admin Dose 650 MG; Start 11/03/16 at 03:00 Morphine Sulfate (morphine) 4 mg Q6 PRN IV PAIN LEVEL 7-10 Last administered on 11/04/16 04:23; Admin Dose 4 MG; Start 11/03/16 at 03:00 Nitroglycerin (Nitroglycerin (Sl Tab) 0.4 Mg) 1 tab Q5M PRN SL ANGINA; Start at 03:00 Insulin Glargine (Lantus) 10 unit DAILY@08 SC Last administered on 11/04/16 08: 23; Admin Dose 10 UNIT; Start 11/03/16 at 08:00 Diagnostic Test (Pha) (Accu-Chek) 1 ea 02 XX ; Start 11/04/16 at 02:00 Miscellaneous Information 1 ea NOTE XX ; Start 11/03/16 at 04:00 Glucose (Glutose) 15 gm Q15M PRN PO DECREASED GLUCOSE; Start 11/03/16 at 04:00 Glucose (Glutose) 22.5 gm Q15M PRN PO DECREASED GLUCOSE; Start 11/03/16 at 04:00 Dextrose (D50w Syringe) 25 ml Q15M PRN IV DECREASED GLUCOSE; Start 11/03/16 at 04:00 Dextrose (D50w Syringe) 50 ml Q15M PRN IV DECREASED GLUCOSE; Start 11/03/16 at 04:00 Glucagon (Glucagen) 1 mg Q15M PRN IM DECREASED GLUCOSE; Start 11/03/16 at 04:00 Glucose (Glutose) 15 gm Q15M PRN BUCCAL DECREASED GLUCOSE; Start 11/03/16 at 04: 00 Ondansetron HCl (Zofran Inj) 4 mg Q6H PRN IV NAUSEA AND/OR VOMITING Last administered on 11/04/16 04:23; Admin Dose 4 MG; Start 11/03/16 at 08:30 Ibuprofen (Motrin) 400 mg Q6 PRN PO PAIN Last administered on 11/03/16 12:23; Admin Dose 400 MG; Start 11/03/16 at 12:00 Acetaminophen/ Hydrocodone Bitart ([place] (5/325)) 1 tab Q4H PRN PO PAIN Last administered on 11/04/16 10:24; Admin Dose 1 TAB; Start 11/03/16 at 12:00 Losartan Potassium (Cozaar) 50 mg BID PO Last administered on 11/04/16 08:18; Admin Dose 50 MG; Start 11/03/16 at 21:00 Chlorthalidone (Hygroton) 12.5 mg DAILY PO Last administered on 11/04/16 08:18 ; Admin Dose 12.5 MG; Start 11/03/16 at 18:30 Amlodipine Besylate (Norvasc) 5 mg DAILY PO Last administered on 11/04/16 08:18 ; Admin Dose 5 MG; Start 11/04/16 at 09:00 Clonidine (Catapres) 0.1 mg BID PRN PO ELEVATED BLOOD PRESSURE Last administered on 11/04/16 04:39; Admin Dose 0.1 MG; Start 11/04/16 at 05:00 BENJI GRAY MD Nov 04, 2016 16:46
== END 2016-11-04 17:00 | disposition home or self-care (01) ==
LOC: E/R 22:57 → MS4 11-03 00:57
PROVIDERS: ADMIT Internal Medicine; ATTEND Internal Medicine
DX: R07.89 Other chest pain (principal); I16.0 Hypertensive urgency; I48.0 Paroxysmal atrial fibrillation; Z79.01 Long term (current) use of anticoagulants; R51 Headache; E78.5 Hyperlipidemia, unspecified; Z79.82 Long term (current) use of aspirin; E11.9 Type 2 diabetes mellitus without complications; Z79.84 Long term (current) use of oral hypoglycemic drugs; Z23 Encounter for immunization
CPT/HCPCS: 36415; 70450; 71010; 80048; 80053; 80061; 82962; 83036; 83735; 83880; 84100; 84443; 84484; 85025; 85610; 85730; 90686; 93005; 96372; 96374; 96375; 99285; G0378; J0360; J1815; J2270; J2405; J3475

== ENCOUNTER 2018-08-14 18:15 | Emergency (ER) | payer MEDICARE, OTHER ==
[~2018-08-14] VITALS: Ht 170.2 cm; Wt 92.0 kg
[~2018-08-14 18:15] MED LIST changes: +ASPI-831 PO; -ASPI81TA3 PO; +ATEN-51 PO; +HYDR-3601 PO; -HYDR-3671 PO; +HYDR-3672 PO; -LOSA100T7 PO; +LOSA50TA14 PO; -METF850T PO; +METF850T13 PO; -RIVA20TA PO; +RIVA20TA5 PO; +SITA50TA2 PO; +SOLI5TAB2 PO; -SOLI5TAB5 PO
[2018-08-14 18:28] VITALS: Ht 170.2 cm; Wt 92.0 kg
[2018-08-14] MEDS ORDERED: SOD CHLORIDE 0.9% 1,000 ML IV ONE (19:00)
[2018-08-14] MEDS ORDERED: ONDANSETRON 4 MG INJ IV STA (19:16)
--- NOTE | 2018-08-14 19:19 | ERD ---
ER Documentation Chief Complaint Chief Complaint BIB RA for flu like symptoms x5 days HPI This is an 82-year-old female with a past medical history of hypertension, diabetes, chronic constipation, appendicitis status post appendectomy, previous who is presenting with waxing and waning constipation, progressively worsening over the last 10 days. The patient has been taking senna and Dulcolax at home. She did have a large bowel movement last night, but since then, she has felt very weak and fatigued with a decreased appetite. She is also had decreased fluid intake and feels hydrated. She describes her mouth is dry. The patient also endorses nausea with an episode of nonbilious nonbloody clear vomiting. The patient denies any diarrhea. She has not had any black or bloody or tarry stools. She denies any dysuria or hematuria or urgency or frequency. The patient denies feeling sick recently. The patient denies fever or chills. She has not been around any sick contacts. The patient has had no headache or vision changes. The patient does not endorse neck or back pain. The patient denies lightheadedness or dizziness. The patient has had no chest pain or trouble breathing. The patient has had no focal deficits. The patient has had no weakness or numbness or tingling to the face or extremities. ROS All systems reviewed and are negative except as per history of present illness. Medications Home Meds Active Scripts Atenolol* (Atenolol*) 25 Mg Tablet, 25 MG PO BID, #60 TAB Prov:BENJI GRAY MD 11/03/16 Hydralazine Hcl* (Hydralazine Hcl*) 50 Mg Tab, 50 MG PO BID, #60 TAB Prov:BENJI GRAY MD 11/03/16 Losartan Potassium* (Losartan Potassium*) 50 Mg Tablet, 50 MG PO BID, #60 TAB Prov:BENJI GRAY MD 11/03/16 Sitagliptin* (Januvia*) 50 Mg Tablet, 50 MG PO DAILY, #30 TAB Prov:BENJI GRAY MD 11/03/16 Hydrocodone Bit-Acetaminophen (Hydrocodone Bit-APAP) 5-325MG Tablet, 1 TAB PO Q4H PRN for PAIN for 1 Day, TAB Prov:BENJI GRAY MD 4/3/17 Aspirin (Aspirin) 81 Mg Chew, 81 MG PO DAILY for 30 Days Prov:HOMAR ESCOBEDO MD 09/30/14 Reported Medications Solifenacin* (Vesicare*) 5 Mg Tablet, 5 MG PO DAILY, TAB 09/28/14 Rivaroxaban* (Xarelto*) 20 Mg Tablet, 20 MG PO DAILY, TAB 09/28/14 Dronedarone Hydrochloride* (Multaq*) 400 Mg Tablet, 400 MG PO BID, TAB 09/28/14 Metformin Hcl* (Metformin Hcl*) 850 Mg Tablet, 850 MG PO BID, TAB 09/28/14 Allergies Allergies: Coded Allergies: No Known Allergy (Unverified , 11/04/16) PMhx/Soc History of Surgery: Yes (Appendectomy, ) Anesthesia Reaction: No Hx Neurological Disorder: No Hx Respiratory Disorders: No Hx Cardiac Disorders: Yes (HTN) Hx Psychiatric Problems: No Hx Miscellaneous Medical Probl: Yes (back pain, DM) Hx Alcohol Use: No Hx Substance Use: No Hx Tobacco Use: No Smoking Status: Never smoker FmHx Family History: No diabetes Physical Exam Vitals Vital Signs Date Temp Pulse Resp B/P (MAP) Pulse Ox O2 O2 Flow FiO2 Time Delivery Rate 08/14/18 97.8 71 18 156/68 100 18:28 (97) Physical Exam Const: No apparent distress, well-developed, well-nourished Head: Normocephalic, Atraumatic Eyes: Normal Conjunctiva. Extraocular movements intact. Pupils equal, round and reactive to light ENT: Normal External Ears, Nose. Dry mucous membranes. Neck: Full range of motion. No meningismus. Resp: Clear to auscultation bilaterally, No wheezes, rales or rhonchi Cardio: Regular rate and rhythm. No murmurs, rubs or gallops Abd: Soft, non distended. General discomfort without exquisite tenderness. Normal bowel sounds Skin: No petechiae or rashes Back: No midline tenderness. No CVA tenderness Ext: No cyanosis, or edema Neur: Awake and alert, oriented 4. Cranial nerves intact. No facial droop. Normal strength, sensation and coordination. Psych: Normal Mood and Affect Result Diagram: 08/14/18190408/14/181904 Results 24 hrs Laboratory Tests Test 08/14/18 19:05 08/14/18 20:11 White Blood Count 5.9 10^3/ul Red Blood Count 4.47 10^6/ul Hemoglobin 11.9 g/dl Hematocrit 36.8 % Mean Corpuscular Volume 82.3 fl Mean Corpuscular Hemoglobin 26.6 pg Mean Corpuscular Hemoglobin Concent 32.3 g/dl Red Cell Distribution Width 13.5 % Platelet Count 193 10^3/UL Mean Platelet Volume 10.8 fl Immature Granulocytes % 0.500 % Neutrophils % 67.6 % Lymphocytes % 24.3 % Monocytes % 7.4 % Eosinophils % 0.2 % Basophils % 0.0 % Nucleated Red Blood Cells % 0.0 /100WBC Immature Granulocytes # 0.030 10^3/ul Neutrophils # 4.0 10^3/ul Lymphocytes # 1.4 10^3/ul Monocytes # 0.4 10^3/ul Eosinophils # 0.0 10^3/ul Basophils # 0.0 10^3/ul Nucleated Red Blood Cells # 0.0 10^3/ul Sodium Level 144 mmol/L Potassium Level 4.1 mmol/L Chloride Level 104 mmol/L Carbon Dioxide Level 27 mmol/L Anion Gap 13 Blood Urea Nitrogen 23 mg/dl Creatinine 0.99 mg/dl Est Glomerular Filtrat Rate mL/min mL/min Glucose Level 91 mg/dl Calcium Level 9.8 mg/dl Total Bilirubin 0.2 mg/dl Direct Bilirubin 0.00 mg/dl Indirect Bilirubin 0.2 mg/dl Aspartate Amino Transf (AST/SGOT) 18 IU/L Alanine Aminotransferase (ALT/SGPT) 18 IU/L Alkaline Phosphatase 52 IU/L Total Protein 7.7 g/dl Albumin 4.1 g/dl Globulin 3.60 g/dl Albumin/Globulin Ratio 1.13 Lipase 99 U/L Bedside Urine pH (LAB) 5.5 Bedside Urine Protein (LAB) 2+ Bedside Urine Glucose (UA) Negative Bedside Urine Ketones (LAB) Trace Bedside Urine Blood 2+ Bedside Urine Nitrite (LAB) Negative Bedside Urine Leukocyte Esterase (L 3+ Current Medications Medications Dose Sig/Jean-Claude Start Time Status Last (Trade) Ordered Route PRN Stop Time Admin Dose Reason Admin Sodium 1,000 ml @ Q1H ONCE 08/14/18 DC 08/14/18 Chloride 1,000 mls/hr IV 19:00 19:20 08/14/18 19:59 Ondansetron 4 mg ONCE STAT 08/14/18 DC HCl (Zofran IV 19:16 Inj) 08/14/18 19:21 Procedures/MDM MDM The patient's presentation warrants further investigation. Previous medical records, if available, were reviewed. LABS The patient's laboratory testing was obtained and reviewed. No emergent treatment was required unless described below. CBC: No E/o of systemic infection or severe anemia or thrombocytopenia. Mild normocytic anemia, not emergent. CMP: No E/o severe acidosis or alkalosis or renal failure or liver disease or diabetic ketoacidosis. Elevated BUN with a BUN: Creatinine ratio of greater than 20: 1, concerning for dehydration. Lipase: No E/o pancreatitis Urine: E/o acute infection without hematuria IMAGING Imaging and Radiology interpretation reviewed. CXR COMPARISON: 11/02/2016. FINDINGS: Normal cardiac and mediastinal configuration. Aortic calcified plaque absent. No CHF or hilar enlargement. Lungs are clear. No free air under the hemidiaphragms. IMPRESSION: No acute disease. Electronically viewed and signed by Physician Trino on 08/14/2018 19:47 CT Abdomen/Pelvis FINDINGS: CT abdomen Visualized lung bases: Clear. The heart is top normal in size. No pleural or significant pericardial effusion. Liver: Limited evaluation without IV contrast. No gross lesion. Gallbladder and bile ducts: No calcified gallstones or pericholecystic fluid. No biliary ductal dilatation. Spleen: Normal appearance. Pancreas: Mild atrophy. No mass or ductal dilatation. No peripancreatic stranding. Adrenal glands: Normal appearance. Kidneys: No hydronephrosis or renal stones. Bilateral renal cysts. Vasculature: No abdominal aortic aneurysm. Calcified plaque present. Negative IVC. Lymph nodes: No adenopathy. GI: No evidence of obstruction or bowel wall thickening. Peritoneal cavity: No free fluid or free air. CT pelvis GI: Negative terminal ileum. The appendix is not identified. Negative sigmoid colon. Negative rectum. : Genitourinary structures are unremarkable. Peritoneal cavity: No free fluid. Calcified phleboliths. Lymph nodes: No adenopathy. Osseous structures: No lytic or blastic lesions. No endplate fractures. IMPRESSION: Bilateral renal cysts. Electronically viewed and signed by Physician Trino on 08/14/2018 20:13 TREATMENT/DISPOSITION The patient presents with abdominal pain and constipation. The patient did have a large bowel movement last night. The patient does not appear to be constipated any longer. The patient has had previous abdominal surgeries. A CT was completed to evaluate for the possibility of small bowel obstruction. The CT scan was reassuring. The patient does not have a small bowel obstruction. There is no evidence of stool impaction. The patient has renal cysts, which is an incidental finding and unlikely to be related to her symptoms today. The patient did endorse dehydration and there are clinical and laboratory findings to suggest this as well. The patient was given IV fluids in the emergency department. The patient's urine dip was also positive for urinary tract infection. While the patient does not endorse any obvious urinary symptoms, I am concerned about this and I do feel that the patient requires outpatient sybil atment. The patient does not have symptoms concerning for a systemic infection. I do not feel the patient requires a full septic workup. The patient does not have any evidence of peritonitis. The patient does not have clinical symptoms concerning for mesenteric ischemia or ischemic colitis. The p atient does not have right upper quadrant tenderness, and I have low suspicion for gallstones, cholecystitis or biliary colic. The patient does not have any epigastric pain. I have low suspicion for gastritis, PUD or GERD. The patient does not have left upper quadrant tenderness. I have low suspicion for pancreatitis. The patient does not have any right lower quadrant tenderness, or periumbilical tenderness. I have low suspicion for appendicitis. The patient does not have any left lower quadrant tenderness, and I have low suspicion for diverticulosis or diverticulitis. The patient does not have any flank tenderness. The patient does not have gross hematuria. I have decreased suspicion for nephrolithiasis or renal colic. The patient does not have any palpable pulsatile mass or severe abdominal pain radiating to the back. I have low suspicion for aortic aneurysm, dissection or rupture. The patient was treated with IV fluids and Zofran. Upon reevaluation of the patient, symptoms have improved. No emergent diagnoses were identified. At this time, I feel that the patient stable for discharge. The patient was instructed to follow-up with a primary care physician in 1-3 days. The patient will be given strict precautions with which to return to the emergency department. Prescriptions: Zofran, Macrobid The patient's blood pressure was elevated at greater than 120/80 while in the emergency department. The patient was otherwise stable with no evidence of hypertensive urgency or emergency. The patient does not require admission for blood pressure control. I have discussed with the patient the risks of hypertension. I have instructed the patient to return to the ER for any new or worsening symptoms including chest pain, shortness of breath, headache, blurred vision, confusion, nausea, vomiting or LOC. I have advised the patient to follow up with the primary care physician for outpatient monitoring and treatment for hypertension in 1-3 days. Disclaimer: Inadvertent spelling and grammatical errors are likely due to EHR/dictation software use and do not reflect on the overall quality of patient care. Note that the electronic time recorded on this note does not necessarily reflect the actual time of the patient encounter. Departure Diagnosis: Primary Impression: Abdominal pain Abdominal location: generalized Qualified Codes: R10.84 - Generalized abdominal pain Additional Impressions: Constipation Constipation type: unspecified constipation type Qualified Codes: K59.00 - Constipation, unspecified Dehydration Nausea & vomiting Vomiting type: unspecified Vomiting Intractability: non-intractable Qualified Codes: R11.2 - Nausea with vomiting, unspecified Elevated BUN Normocytic anemia UTI (urinary tract infection) Urinary tract infection type: acute cystitis Hematuria presence: without hematuria Qualified Codes: N30.00 - Acute cystitis without hematuria Condition: Stable Patient Instructions: Abdominal Pain, Constipation (Adult), Dehydration, Understanding Urinary Tract Infections (UTIs) Additional Instructions: Thank you for for coming to [facility] for your care today. Please ask your nurse or provider if you have questions about your care today and do not leave until all your questions have been answered. Please use any medications given as directed and follow-up with your doctor (or the doctor you were referred to) in the next 1-3 days. If you do not have a primary care doctor you may follow up at the [facility] or [facility] (listed below). You may also use motrin and tylenol as needed for fever and/or pain unless instr ucted otherwise by your provider or nurse. Indications for more urgent follow-up have been discussed, but you may return to the Emergency Department at ANY time for any worrisome or worsening symptoms. If you have abdominal pain, please know that no test or exam you received is perfect and you should follow up within 8 hours for continued pain. If you had any imaging studies today, such as an X-Ray or CT Scan, these studies will be reviewed later by a radiologist. You will be called if there are important findings that were not identified today, so make sure the contact information you provided at registration is correct. If you received any narcotic pain control medicine today, such as Vicodin, Morphine or Dilaudid, your coordination and judgment may be affected for a number of hours. Please do not drive or operate heavy machinery, and you may want someone to assist you at home. If you were given a prescription for narcotic medication, be aware that it is very addictive- use sparingly and only if necessary. PLEASE SEEK FURTHER EVALUATION AND MANAGEMENT AT YOUR DOCTORS OFFICE WITHIN THE NEXT 1-3 DAYS. IT IS YOUR RESPONSIBILITY TO MAKE AN APPOINTMENT FOR FOLOW-UP CARE. IF YOU HAVE A PRIMARY DOCTOR, PLEASE CALL THEIR OFFICE TO SCHEDULE AN APPOINTMENT FOR FOLLOW UP. IF YOU DO NOT HAVE A PRIMARY DOCTOR YOU CAN CALL OUR PHYSICIAN REFERRAL HOTLINE AT IF YOU CAN NOT AFFORD TO SEE A PHYSICIAN YOU CAN CHOSE FROM THE FOLLOWING [facility] CLINICS: [facility] [address] [facility] [address] [employer] [facility] [address] [facility] [address] [facility] [address] [facility] [facility]. [address] HAN MACIAS MD Aug 14, 2018 19:19
[2018-08-14] MEDS ORDERED: CEPH-443 PO (21:08)
[2018-08-14] MEDS ORDERED: ONDA4TAB8 PO (21:08)
[2018-08-14 21:14] VITALS: BP 154/61; PULSE 70; RESP 16
== END 2018-08-14 21:16 | disposition home or self-care (01) ==
LOC: E/R 18:15
DX: K59.00 Constipation, unspecified (principal); E86.0 Dehydration; N30.00 Acute cystitis without hematuria; D64.9 Anemia, unspecified; E11.9 Type 2 diabetes mellitus without complications; I10 Essential (primary) hypertension; Z79.82 Long term (current) use of aspirin; Z79.84 Long term (current) use of oral hypoglycemic drugs
CPT/HCPCS: 71045; 74176; 80053; 81003; 83690; 85025; J7030; 36415

== ENCOUNTER 2019-01-18 16:15 | Emergency (ER) | payer MEDICARE, OTHER ==
[~2019-01-18] VITALS: Ht 162.6 cm; Wt 83.1 kg
[~2019-01-18 16:15] MED LIST changes: +CEPH-443 PO; +ONDA4TAB8 PO
[2019-01-18 16:21] VITALS: Ht 162.6 cm; Wt 83.1 kg
[2019-01-18] MEDS ORDERED: ONDANSETRON 4 MG INJ IV STA (16:44)
[2019-01-18] MEDS ORDERED: SITA50TA2 PO (17:16)
[2019-01-18] MEDS ORDERED: ATEN100T PO (17:16)
[2019-01-18] MEDS ORDERED: CLON0.2T5 PO (17:17)
[2019-01-18] MEDS ORDERED: METF850T13 PO (17:17)
[2019-01-18] MEDS ORDERED: FURO40TA4 PO (17:18)
[2019-01-18] MEDS ORDERED: LACT10SO5 PO (17:18)
[2019-01-18] MEDS ORDERED: ESOM40CA PO (17:19)
[2019-01-18] MEDS ORDERED: GLIM2TAB PO (17:19)
[2019-01-18] MEDS ORDERED: BISA-57 PR (20:00)
[2019-01-18] MEDS ORDERED: POLY17PO6 PO (20:00)
[2019-01-18 20:31] VITALS: BP 172/82; PULSE 87; RESP 16
--- NOTE | 2019-01-18 22:57 | ERD ---
ER Documentation Chief Complaint Chief Complaint PT BIB RA [id number] with c/o constipation and decreased appetite X 4-5 days. HPI The patient is a 83-year-old female, presenting to the ER because of decreased appetite, constipation for the last 5 days. He has a history history of chronic constipation,. She c/o vague headache., denies fever, chills, neck pain, chest pain, dyspnea, vomiting, dysuria. She does not smoke nor drink She was seen recently in August 2018 for similar symptoms and had an unremarkable abdominal pelvic CT The history was limited due to language barrier. Medical history: Hypertension, diabetes mellitus, constipation Past surgical history: Appendectomy, ROS All systems reviewed and are negative except as per history of present illness. Medications Home Meds Active Scripts Polyethylene Glycol* (Miralax*) 17 Gm Powd.pack, 17 GM PO DAILY, #7 Prov:KINGSTON RAYMOND MD 01/18/19 Bisacodyl* (Dulcolax*) 5 Mg Tablet.dr, 10 MG DE DAILY PRN for CONSTIPATION for 7 Days, TAB Prov:KINGSTON RAYMOND MD 01/18/19 Reported Medications Glimepiride* (Glimepiride*) 2 Mg Tablet, 2 MG PO WITH BREAKFAST, TAB 01/18/19 Esomeprazole Mag Trihydrate (Nexium) 40 Mg Capsule.dr, 40 MG PO DAILY, #30 CAP 01/18/19 Furosemide* (Furosemide*) 40 Mg Tablet, 40 MG PO NEEDED, TAB 01/18/19 Lactulose* (Lactulose*) 10 Gm/15 Ml Solution, 30 ML PO DAILY, ML 01/18/19 Clonidine Hcl* (Clonidine Hcl*) 0.2 Mg Tablet, 0.2 MG PO NEEDED, TAB 01/18/19 Metformin Hcl* (Metformin Hcl*) 850 Mg Tablet, 850 MG PO WITH BREAKFAST DINNE, #60 TAB 01/18/19 Sitagliptin* (Januvia*) 50 Mg Tablet, 50 MG PO DAILY, #30 TAB 01/18/19 Atenolol* (Atenolol*) 100 Mg Tablet, 100 MG PO DAILY, #30 TAB 01/18/19 Discontinued Reported Medications Solifenacin* (Vesicare*) 5 Mg Tablet, 5 MG PO DAILY, TAB 09/28/14 Rivaroxaban* (Xarelto*) 20 Mg Tablet, 20 MG PO DAILY, TAB 09/28/14 Dronedarone Hydrochloride* (Multaq*) 400 Mg Tablet, 400 MG PO BID, TAB 09/28/14 Metformin Hcl* (Metformin Hcl*) 850 Mg Tablet, 850 MG PO BID, TAB 09/28/14 Discontinued Scripts Cephalexin* (Keflex*) 500 Mg Capsule, 500 MG PO BID for 7 Days, CAP Prov:HAN ESPINAL MD 08/14/18 Ondansetron Hcl* (Zofran*) 4 Mg Tablet, 4 MG PO Q8H PRN for NAUSEA AND/OR VOMITING, #30 TAB Prov:HAN ESPINAL MD 08/14/18 Atenolol* (Atenolol*) 25 Mg Tablet, 25 MG PO BID, #60 TAB Prov:BENJI GRAY MD 11/03/16 Hydralazine Hcl* (Hydralazine Hcl*) 50 Mg Tab, 50 MG PO BID, #60 TAB Prov:BENJI GRAY MD 11/03/16 Losartan Potassium* (Losartan Potassium*) 50 Mg Tablet, 50 MG PO BID, #60 TAB Prov:BENJI GRAY MD 11/03/16 Sitagliptin* (Januvia*) 50 Mg Tablet, 50 MG PO DAILY, #30 TAB Prov:BENJI GRAY MD 11/03/16 Hydrocodone Bit-Acetaminophen (Hydrocodone Bit-APAP) 5-325MG Tablet, 1 TAB PO Q4H PRN for PAIN for 1 Day, TAB Prov:BENJI GRAY MD 11/03/16 Aspirin (Aspirin) 81 Mg Chew, 81 MG PO DAILY for 30 Days Prov:HOMAR ESCOBEDO MD 09/30/14 Allergies Allergies: Coded Allergies: No Known Allergy (Unverified , 01/18/19) PMhx/Soc History of Surgery: Yes (Appendectomy, ) Anesthesia Reaction: No Hx Neurological Disorder: No Hx Respiratory Disorders: No Hx Cardiac Disorders: Yes (HTN) Hx Psychiatric Problems: No Hx Miscellaneous Medical Probl: Yes (back pain, DM) Hx Alcohol Use: No Hx Substance Use: No Hx Tobacco Use: No Smoking Status: Never smoker Physical Exam Vitals Vital Signs Date Temp Pulse Resp B/P (MAP) Pulse Ox O2 O2 Flow FiO2 Time Delivery Rate 01/18/19 98.2 87 16 172/82 99 Room Air 20:31 (112) 01/18/19 98.2 58 16 186/82 99 16:21 (116) Physical Exam Const: No acute distress. Head: Atraumatic. Eyes: Normal Conjunctiva. ENT: Normal External Ears, Nose and Mouth. Neck: Full range of motion. No meningismus. Resp: Clear to auscultation bilaterally. Cardio: Regular rate and rhythm. Abd: Soft, non distended, normal bowel sounds, non tender. Skin: No petechiae or rashes. Back: No midline or flank tenderness. Ext: No cyanosis, or edema. Mild bilateral leg calf tenderness Neur: Awake and alert. No focal deficit Psych: Normal Mood and Affect. Result Diagram: 01/18/19 1708 01/18/19 1708 Results 24 hrs Laboratory Tests Test 01/18/19 17:08 01/18/19 19:56 White Blood Count 10.9 10^3/ul Red Blood Count 4.22 10^6/ul Hemoglobin 11.5 g/dl Hematocrit 35.6 % Mean Corpuscular Volume 84.4 fl Mean Corpuscular Hemoglobin 27.3 pg Mean Corpuscular Hemoglobin Concent 32.3 g/dl Red Cell Distribution Width 13.8 % Platelet Count 211 10^3/UL Mean Platelet Volume 10.7 fl Immature Granulocytes % 0.500 % Neutrophils % 83.5 % Lymphocytes % 11.5 % Monocytes % 4.3 % Eosinophils % 0.1 % Basophils % 0.1 % Nucleated Red Blood Cells % 0.0 /100WBC Immature Granulocytes # 0.050 10^3/ul Neutrophils # 9.1 10^3/ul Lymphocytes # 1.3 10^3/ul Monocytes # 0.5 10^3/ul Eosinophils # 0.0 10^3/ul Basophils # 0.0 10^3/ul Nucleated Red Blood Cells # 0.0 10^3/ul Sodium Level 141 mmol/L Potassium Level 4.2 mmol/L Chloride Level 105 mmol/L Carbon Dioxide Level 25 mmol/L Anion Gap 11 Blood Urea Nitrogen 24 mg/dl Creatinine 1.35 mg/dl Est Glomerular Filtrat Rate mL/min mL/min Glucose Level 119 mg/dl Calcium Level 9.8 mg/dl Total Bilirubin 0.4 mg/dl Direct Bilirubin 0.00 mg/dl Indirect Bilirubin 0.4 mg/dl Aspartate Amino Transf (AST/SGOT) 19 IU/L Alanine Aminotransferase (ALT/SGPT) 19 IU/L Alkaline Phosphatase 59 IU/L Troponin I < 0.012 ng/ml B-Type Natriuretic Peptide 654 PG/ML Total Protein 7.5 g/dl Albumin 4.0 g/dl Globulin 3.50 g/dl Albumin/Globulin Ratio 1.14 Lipase 137 U/L Bedside Urine pH (LAB) 5.0 Bedside Urine Protein (LAB) Trace Bedside Urine Glucose (UA) Negative Bedside Urine Ketones (LAB) Negative Bedside Urine Blood Trace-intact Bedside Urine Nitrite (LAB) Negative Bedside Urine Leukocyte Esterase (L Negative Current Medications Medications Dose Sig/Jean-Claude Start Time Status Last (Trade) Ordered Route PRN Stop Time Admin Dose Reason Admin Ondansetron 4 mg ONCE STAT 01/18/19 DC 01/18/19 HCl (Zofran IV 16:44 17:00 Inj) 01/18/19 16:45 Procedures/[place] [id number] Radiology Main Line: [phone] DIAGNOSTIC IMAGING REPORT Patient: JOSUE MUNIZ : 1935 Age: 83 Sex: F MR #: [id number] DOS: 01/18/19 1800 Ordering MD: KINGSTON RAYMOND MD Location: E/R Room/Bed: PROCEDURE: Ultrasound of the bilateral lower extremity venous system. CLINICAL INDICATION: Bilateral leg pain and swelling, deep venous thrombosis TECHNIQUE: Castillo scale with and without compression, color doppler, spectral doppler of the venous system of the bilateral lower extremities was performed. Venous augmentation maneuvers were utilized. COMPARISON: No prior studies are available for comparison. FINDINGS: Right: Common femoral vein: Patent. Femoral vein: Patent. Popliteal vein: Patent. Calf veins: Patent. No soft tissue abnormalities are identified. Left: Common femoral vein: Patent. Femoral vein: Patent. Popliteal vein: Patent. Calf veins: Patent. No soft tissue abnormalities are identified. IMPRESSION: No evidence of a deep vein thrombosis within the bilateral lower extremities. RPTAT: AADD .Homar Ace MD, MD Date Time Electronically viewed and signed by .Homar Ace MD, MD on 01/18/2019 18:40 .B/ CC: KINGSTON RAYMOND MD [phone] [place] [id number] Radiology Main Line: [phone] DIAGNOSTIC IMAGING REPORT Patient: JOSUE MUNIZ : 1935 Age: 83 Sex: F MR #: [id number] DOS: 01/18/19 1649 Ordering MD: KINGSTON RAYMOND MD Location: E/R Room/Bed: PROCEDURE: CT Brain without contrast. CLINICAL INDICATION: Headache TECHNIQUE: A CT of the brain was performed on a multidetector CT scanner utilizing axial imaging from the skull base through the vertex without IV contrast. Multiplanar reformatted images were made. Images were reviewed on a PACS workstation. The CTDIvol is 37 mGy and the DLP is 634 mGycm. DICOM images are available. One or more of the following dose reduction techniques were utilized: 1.) Automated exposure control 2.) Adjustment of the mA +/- kV according to patient's size 3.) Use of iterative reconstruction technique. COMPARISON: Head CT November 04, 2016 FINDINGS: There is no intracranial hemorrhage, mass effect, or midline shift. No extra- axial fluid collection is seen. There is moderate diffuse cerebral volume loss with sulcal and ventricular dilatation. Ventricles are of normal configuration. Periventricular white matter disease is present in both cerebral hemispheres. There is no associated mass effect. the castillo white matter differentiation appears well-preserved. The visualized paranasal sinuses and osseous structures are grossly unremarkable. IMPRESSION: Atrophy. White matter disease compatible with chronic small vessel ischemia. No intracranial hemorrhage, mass or evidence of acute transcortical infarct. .Chad Matt MD, MD Date Time Electronically viewed and signed by .Chad Matt MD, on 01/18/2019 18:08 .A/ CC: KINGSTON RAYMOND MD [id number] [place] [id number] Radiology Main Line: [phone] DIAGNOSTIC IMAGING REPORT Patient: JOSUE MUNIZ : 1935 Age: 83 Sex: F MR #: [id number] DOS: 01/18/19 1626 Ordering MD: KINGSTON RAYMOND MD Location: E/R Room/Bed: PROCEDURE: XR Chest. CLINICAL INDICATION: Shortness of breath. TECHNIQUE: Single frontal view. COMPARISON: 08/14/2018. FINDINGS: The lungs are clear. The heart size is normal. There is calcification in the aorta consistent with atherosclerosis. There is no pleural effusion. There is no pneumothorax. IMPRESSION: 1. Atherosclerosis. 2. Otherwise unremarkable chest radiograph. RPTAT: QQ .Esa Simpson MD, MD Date Time Electronically viewed and signed by .Esa Simpson MD, MD on 01/18/2019 17:20 .R/ CC: KINGSTON RAYMOND MD [phone] MEDICAL MAKING DECISION: The patient is a 83-year-old female, presenting with abdominal pain due to constipation, is stable for outpatient follow-up. She was treated with Zofran 4 mg IV for nausea with good response The differential diagnoses considered include but are not limited to cholelithiasis, cholecystitis, choledocholithiasis, cholangitis, pancreatitis, hepatitis, gastritis, peptic ulcer disease, gastric ulcer, adhesion, cystitis, diverticulitis, partial small bowel obstruction. Departure Diagnosis: Primary Impression: Abdominal pain Additional Impressions: Constipated Anemia Renal insufficiency Condition: Good Patient Instructions: Abdominal Pain, Constipation (Adult) Additional Instructions: She was discharged with MiraLAX and Dulcolax suppository Call your primary care doctor TOMORROW for an appointment during the next 2-3 days.See the doctor sooner or return here if your condition worsens before your appointment time. KINGSTON RAYMOND MD Jan 18, 2019 22:57
== END 2019-01-18 20:31 | disposition home or self-care (01) ==
LOC: E/R 16:15
DX: K59.00 Constipation, unspecified (principal); I10 Essential (primary) hypertension; E11.9 Type 2 diabetes mellitus without complications; D64.9 Anemia, unspecified; N28.9 Disorder of kidney and ureter, unspecified; R51 Headache; Z79.84 Long term (current) use of oral hypoglycemic drugs
CPT/HCPCS: 36415; 70450; 71045; 80053; 81003; 83690; 83880; 84484; 85025; 93005; 93970; 96374; 99285; J2405